=== PATIENT | female | born 1965 | race Native Hawaiian/Other Pacific Islander ===

== ENCOUNTER 2017-09-13 07:10 | Outpatient (CLI) | payer BC, OTHER | END 2017-09-13 07:22 | disposition short-term general hospital (02) | LOC: AMB 07:10 | DX: M54.89 Other dorsalgia (principal); V49.88XA Car occupant (driver) (passenger) injured in other specified transport accidents, initial encounter; Y93.89 Activity, other specified; Y92.89 Other specified places as the place of occurrence of the external cause; Y99.8 Other external cause status | CPT/HCPCS: A0425; A0427 ==

== ENCOUNTER 2017-09-13 07:22 | Emergency (ER) | payer BC, OTHER ==
[~2017-09-13] VITALS: Ht 170.2 cm; Wt 75.8 kg
== END 2017-09-13 10:19 | disposition home or self-care (01) ==
LOC: ED 07:22
DX: M54.9 Dorsalgia, unspecified (principal); V89.2XXA Person injured in unspecified motor-vehicle accident, traffic, initial encounter
CPT/HCPCS: 99283